=== PATIENT | male | born 1950 | race Caucasian/White ===

== ENCOUNTER 2024-01-13 09:55 | Day surgery (SDC) | payer MEDICARE ==
[2024-01-12 16:03] VITALS: BMI 25.1
[~2024-01-13 09:55] MED LIST: EPINEPHrine 0.3 MG in Ophthalmic Irrigation Solution 500 ML IRR SCH
[2024-01-13] MEDS ORDERED: PHENYLephrine 2.5% Ophth Soln 15 ml Bottle ONE (10:23)
[2024-01-13] MEDS ORDERED: Cyclopentolate 1% Opth Drop 2 ML BOT ONE (10:23)
[2024-01-13] MEDS ORDERED: fentaNYL 50 mcg/mL 1 mL Vial ONE (11:22)
[2024-01-13] MEDS ORDERED: Midazolam HCl 2 mg/2 ml Vial ONE (11:22)
[2024-01-13] MEDS ORDERED: Bupivacaine 0.75% 10 ML VIAL ONE (11:40)
[2024-01-13] MEDS ORDERED: Indocyanine Green 25 MG/10 ML VIAL ONE (11:40)
[2024-01-13] MEDS ORDERED: PROPOFOL 200 MG/20 ML VIAL ONE (11:40)
[2024-01-13] MEDS ORDERED: Lidocaine 1% PF 5 ML VIAL ONE (11:40)
[2024-01-13] MEDS ORDERED: Maxitrol 0.1% Opth Oint 3.5 GM TUBE ONE (11:40)
[2024-01-13] MEDS ORDERED: CEFAZOLIN 1 GM VIAL ONE (11:40)
[2024-01-13] MEDS ORDERED: Triamcinolone 40 MG/ML VIAL ONE (11:40)
== END 2024-01-13 13:05 | disposition home or self-care (01) ==
LOC: SDC 09:55
PROVIDERS: ATTEND Ophthalmology Retina Specialist
PROC: 08T43ZZ Resection of Right Vitreous, Percutaneous Approach (ICD-10-PCS; principal; 2024-01-13)
DX: H35.371 Puckering of macula, right eye (principal)
CPT/HCPCS: 67042; J0171; J0690; J2250; J2704; J3010; J3301; J3490; 67025